=== PATIENT | female | born 1980 | race Caucasian/White ===

== ENCOUNTER 2018-06-16 10:51 | Emergency (ER) | payer MEDICAID ==
[~2018-06-16] VITALS: Ht 170.2 cm; Wt 97.0 kg
[2018-06-16] MEDS ORDERED: METOCLOPRAMIDE 5 MG/ML, 2ML IVPush ONE (11:30)
[2018-06-16] MEDS ORDERED: SODIUM CHLORIDE 0.9% 1,000ML IVBOLUS ONE (11:30)
[2018-06-16] MEDS ORDERED: FAMOTIDINE 20 MG/2 ML IVP ONE (11:30)
[2018-06-16] MEDS ORDERED: LORazepam 2 MG/ML, 1ML IVPush ONE (11:30)
[2018-06-16] MEDS ORDERED: DICYCLOMINE 10 MG/ML, 2ML ONE (11:34)
--- NOTE | 2018-06-16 11:45 | NUR ---
MED GIVEN PER ERP ORDER FOR N/V. PT WITHOUT VOMITING FOR OVER AN HOUR AT THIS TIME, WAS ABLE TO KEEP GLASS OF WATER DOWN. BP CUFF, PULSE OX IN PLACE. VSS/UPDATED IN COMPUTER. PT UPDATED ON POC. WARM BLANKET PROVIDED, CALL LIGHT WITHIN REACH.
[2018-06-16 11:56] LABS: BASOPHILS # (AUTO) 0.01 x10^3/uL (0-0.1); BASOPHILS % (AUTO) 0 % (0-1); EOSINOPHILS # (AUTO) 0.02 x10^3/uL (0-0.4); EOSINOPHILS % (AUTO) 0 % (1-7); LYMPHOCYTES # (AUTO) 0.62 x10^3/uL (1-3.4); LYMPHOCYTES % (AUTO) 6 % (22-44); MD NO; MEAN CORPUSCULAR HEMOGLOBIN 28.5 pg (27.0-34.8); MEAN CORPUSCULAR HGB CONC 34.1 g/dL (32.4-35.8); MEAN CORPUSCULAR VOLUME 83.8 fL (80-100); MEAN PLATELET VOLUME 7.9 fL (7.4-10.4); MONOCYTES # (AUTO) 0.22 x10^3/uL (0.2-0.8); MONOCYTES % (AUTO) 2 % (2-9); NEUTROPHILS # (AUTO) 9.73 x10^3/uL (1.8-6.8); NEUTROPHILS % (AUTO) 92 % (42-75); PLATELET COUNT 303 x10^3/uL (130-400); RED BLOOD COUNT 4.48 x10^6/uL (3.82-5.3); RED CELL DISTRIBUTION WIDTH 15.2 % (9.6-15.2)
[2018-06-16] MEDS ORDERED: DICYCLOMINE 10 MG/ML, 2ML IM ONE (12:00)
[2018-06-16 12:07] LABS: ALANINE AMINOTRANSFERASE 16 U/L (12-78); ALBUMIN 3.4 g/dL (3.4-5.0); ANION GAP 6 mmol/L (5-15); CALCIUM 8.2 mg/dL (8.5-10.1); CHLORIDE 108 mmol/L (98-107); CREATININE 0.78 mg/dL (0.55-1.02)
[2018-06-16 12:09] LABS: ALKALINE PHOSPHATASE 72 U/L (45-117); BILIRUBIN,TOTAL 0.9 mg/dL (0.2-1.0); TOTAL PROTEIN 6.9 g/dL (6.4-8.2)
[2018-06-16 12:12] VITALS: BP 100/60
== END 2018-06-16 12:30 | disposition home or self-care (01) ==
LOC: ED 12:07
DX: R11.2 Nausea with vomiting, unspecified (principal)
CPT/HCPCS: 36415; 74022; 80053; 83690; 85025; 96372; 99284; J0500

== ENCOUNTER 2018-06-28 14:58 | Emergency (ER) | payer MEDICAID ==
[~2018-06-28] VITALS: Ht 170.2 cm; Wt 97.6 kg
[2018-06-28 15:01] VITALS: BP 116/77
[2018-06-28 15:39] LABS: RAPID INFLUENZA A Negative (Negative); RAPID INFLUENZA B Negative (Negative)
--- NOTE | 2018-06-28 16:20 | NUR ---
PT TO ROOM, PT PRESENTS TO ED BECAUSE SHE "FEELS TERRIBLE", HAS HAD COLD LIKE SXS FOR TWO DAYS WITH NECK PAIN. PT PLACED ON MONITOR, CALL LIGHT WITHIN REACH, NAD. TINAJERO
--- NOTE | 2018-06-28 16:41 | NUR ---
PT INSTRUCTED TO OBTAIN URINE SAMPLE
--- NOTE | 2018-06-28 17:25 | NUR ---
TASK RN: RESULTS IN, PT CLEARED FOR D/C. AMBULATING WELL UPON DEPARTURE.
== END 2018-06-28 17:27 | disposition home or self-care (01) ==
LOC: ED 16:44
DX: J02.9 Acute pharyngitis, unspecified (principal); F17.200 Nicotine dependence, unspecified, uncomplicated
CPT/HCPCS: 71046; 87081; 87400; 87880; 99284